=== PATIENT | female | born 1975 | race Caucasian/White ===

== ENCOUNTER → 2017-09-18 | Outpatient (CLI) | payer OTHER ==
[2017-09-18 15:32] LABS: ADD MAN DIFF? NO
[2017-09-18 15:34] LABS: BASO % 1 % (0-3); EOS # 0.1 x10^3/uL (0.0-0.7); EOS % 1 % (0-3); HEMATOCRIT 40.7 % (36.0-47.0); HEMOGLOBIN 14.3 g/dL (12.0-15.5); LYMPH # 1.8 x10^3/uL (1.0-4.8); LYMPH % 25 % (24-48); MEAN CORPUSCULAR HEMOGLOBIN 31 pg (25-35); MEAN CORPUSCULAR HGB CONC 35 g/dL (31-37); MEAN CORPUSCULAR VOLUME 87 fL (79-100); MONO # 0.4 x10^3/uL (0.0-1.1); MONO % 5 % (0-9); NEUT % 68 % (31-73); PLATELET COUNT 265 x10^3/uL (140-400); RED BLOOD COUNT 4.68 x10^6/uL (3.50-5.40); RED CELL DISTRIBUTION WIDTH 13.1 % (11.5-14.5); WHITE BLOOD COUNT 7.3 x10^3/uL (4.0-11.0)
[2017-09-18 15:40] LABS: BILIRUBIN,URINE NEGATIVE (NEG); CLARITY,URINE CLEAR; COLOR,URINE YELLOW; GLUCOSE,URINE NEGATIVE (NEG); NITRITE,URINE NEGATIVE (NEG); PH,URINE 6.5; PROTEIN,URINE NEGATIVE (NEG-TRACE)
[2017-09-18 15:48] LABS: ALBUMIN/GLOBULIN RATIO 0.9 (1.0-1.7); ALK PHOS 73 U/L (46-116); ALT (SGPT) 21 U/L (14-59); ANION GAP 9 (6-14); AST (SGOT) 19 U/L (15-37); BLOOD UREA NITROGEN 17 mg/dL (7-20); BUN/CREATININE RATIO 24 (6-20); CALCIUM 9.5 mg/dL (8.5-10.1); CARBON DIOXIDE 29 mmol/L (21-32); CHLORIDE 102 mmol/L (98-107); CREATININE 0.7 mg/dL (0.6-1.0); GFR 93.2; GLUCOSE 92 mg/dL (70-99); POTASSIUM 3.6 mmol/L (3.5-5.1); SODIUM 140 mmol/L (136-145); TOTAL BILIRUBIN 0.6 mg/dL (0.2-1.0); TOTAL PROTEIN 8.3 g/dL (6.4-8.2)
[2017-09-18 15:59] LABS: BACTERIA,URINE MODERATE /HPF (0-FEW); RBC,URINE 0 /HPF (0-2); SQUAMOUS EPITHELIAL CELL,UR MANY /LPF
== END | disposition home or self-care (01) ==
LOC: SURGPAT 14:42
DX: Z01.812 Encounter for preprocedural laboratory examination (principal)
CPT/HCPCS: 36415; 80053; 81001; 85025

== ENCOUNTER 2017-09-26 05:59 | Observation (INO) | payer OTHER ==
[~2017-09-26 05:59] MED LIST: ESTROGENS, CONJ VAGINAL CREAM 30GM TUBE.; METHYLENE BLUE 1% 10 ML VIAL.; MORPHINE SULFATE 4 MG/ML DISP.SYRIN. IV
[2017-09-26] MEDS: IV RINGERS,LACTATED 1000ML 1,000 ML IV (06:38)
[2017-09-26 06:48] LABS: NEG OBC UR NEG; POS OBC UR POS; U PREG PATIENT NEGATIVE (NEG)
[2017-09-26] MEDS ORDERED: ONDANSETRON PF 4 MG/2 ML VIAL. IV ×2 (07:00→10:00)
[2017-09-26] MEDS ORDERED: fentaNYL PF VIAL 100 MCG/2 ML VIAL IV (07:00)
[2017-09-26] MEDS ORDERED: LIDOCAINE 1% PF 2 ML VIAL. ID (07:00)
[2017-09-26] MEDS ORDERED: PROPOFOL 20 ML IV (07:15)
[2017-09-26] MEDS ORDERED: DEXAMETHASONE SOD PHOS 20 MG/5 ML VIAL. (07:15)
[2017-09-26] MEDS ORDERED: LIDOCAINE 2% PF Vial for OR 5 ML VIAL. (07:15)
[2017-09-26] MEDS ORDERED: MIDAZOLAM HCL/PF 2 MG/2 ML VIAL. (07:15)
[2017-09-26] MEDS ORDERED: fentaNYL PF VIAL 100 MCG/2 ML VIAL ×2 (07:15→08:56)
[2017-09-26] MEDS ORDERED: ROCURONIUM 50 MG/5 ML VIAL. (07:16)
[2017-09-26] MEDS ORDERED: ePHEDrine PF IN SALINE 50 MG/5 ML DISP.SYRIN IV (07:58)
[2017-09-26] MEDS: BUPIVACAINE-EPI 0.25%-1:200000 50 ML VIAL. (08:05)
[2017-09-26] MEDS ORDERED: NEOSTIGMINE METHYLSULFATE 5 MG/5 ML SYRINGE. (08:26)
[2017-09-26] MEDS ORDERED: GLYCOPYRROLATE 1 MG/5 ML VIAL. (08:26)
[2017-09-26] MEDS ORDERED: KETOROLAC 30 MG/ML INJ FOR OR. INJ (08:26)
[2017-09-26] MEDS ORDERED: PHENYLEPHRINE in 0.9% NACL PF 1 MG/10 ML SYRINGE. IV (08:26)
[2017-09-26] MEDS ORDERED: ONDANSETRON PF 4 MG/2 ML VIAL. (08:27)
[2017-09-26] MEDS ORDERED: SEVOFLURANE 61 TO 120 MINUTES. IH (08:34)
[2017-09-26] MEDS ORDERED: diphenhydrAMINE 50 MG/ML VIAL IV (10:00)
[2017-09-26] MEDS ORDERED: LACTULOSE 20 GM/30 ML SOLUTION. PO (10:00)
[2017-09-26] MEDS ORDERED: SIMETHICONE 80 MG TAB.CHEW PO (10:00)
[2017-09-26] MEDS ORDERED: ZOLPIDEM 5 MG TABLET. PO (10:00)
[2017-09-26] MEDS ORDERED: CALCIUM CARBONATE 500 MG TAB.CHEW PO (10:00)
[2017-09-26] MEDS ORDERED: 0.9 % SODIUM CHLORIDE 10 ML DISP.SYRIN. IV (10:00)
[2017-09-26] MEDS ORDERED: NALOXONE 0.4 MG/ML VIAL. IV (10:00)
[2017-09-26] MEDS ORDERED: diphenhydrAMINE HCL 25 MG CAPSULE PO (10:00)
[2017-09-26] MEDS ORDERED: HYDROcodone/APAP 5/325MG 1 TAB TABLET PO (10:00)
[2017-09-26] MEDS ORDERED: MORPHINE SULFATE 4 MG/ML DISP.SYRIN. IV (10:00)
[2017-09-26] MEDS ORDERED: MAG HYDROX/ALUMINUM HYD/SIMETH 30 ML ORAL.SUSP PO (10:00)
[2017-09-26] MEDS: fentaNYL PF VIAL 100 MCG/2 ML VIAL IV (10:18)
[2017-09-26] MEDS: PROCHLORPERAZINE 10 MG/2 ML VIAL. IV (10:18)
[2017-09-26] MEDS ORDERED: ceFAZolin 2GM PREMIX 2 GM/50 ML BAG IV (12:00)
[2017-09-26] MEDS: KETOROLAC 30 MG/ML INJ. IV (14:33)
[2017-09-26] MEDS: oxyCODONE/APAP 5/325 1 TAB TABLET PO ×2 (17:00→21:33)
[2017-09-27] MEDS: oxyCODONE/APAP 5/325 1 TAB TABLET PO ×4 (02:15→10:33)
[2017-09-27] MEDS: IBUPROFEN 800 MG TABLET. PO (07:03)
[2017-09-27 07:27] LABS: HEMATOCRIT 37.5 % (36.0-47.0)
[2017-09-27 07:45] LABS: ANION GAP 6 (6-14); BLOOD UREA NITROGEN 9 mg/dL (7-20); CALCIUM 8.2 mg/dL (8.5-10.1); CARBON DIOXIDE 28 mmol/L (21-32); CHLORIDE 105 mmol/L (98-107); CREATININE 0.7 mg/dL (0.6-1.0); GFR 93.2; GLUCOSE 100 mg/dL (70-99); POTASSIUM 3.5 mmol/L (3.5-5.1); SODIUM 139 mmol/L (136-145)
[2017-09-27] MEDS: MAGNESIUM HYDROXIDE 2,400 MG/30 ML ORAL.SUSP. PO (10:44)
[2017-09-27] MEDS: ONDANSETRON ODT 4 MG TAB.RAPDIS. PO (10:46)
== END 2017-09-27 10:55 | disposition home or self-care (01) ==
LOC: SURG 05:59 → 3 NORTH 10:00
DX: D25.9 Leiomyoma of uterus, unspecified (principal); N88.8 Other specified noninflammatory disorders of cervix uteri; N92.0 Excessive and frequent menstruation with regular cycle
CPT/HCPCS: 36415; 80048; 81025; 85014; 86850; 86900; 86901; 88307; 96374; A7015; G0378; G0379; J0690; J0780; J1100; J1885; J2250; J2370; J2405; J2704; J2710; J3010; J3490; J7030; J7120; Q0162; Q9968